=== PATIENT | female | born 1985 | race Two or more races ===

== ENCOUNTER → 2024-09-21 | Outpatient (CLI) | payer BC, SELFPAY ==
--- NOTE | 2024-09-21 | XR_ITS ---
Examination: PA lateral chest 2 views TECHNIQUE: Upright PA lateral chest 2 views Exam date and time: September 21, 2024 0855 hours Comparison 02/15/2021 INDICATIONS: Positive PPD FINDINGS: Normal heart size. Lungs are clear. Intact osseous structures IMPRESSION: No active disease No radiographic findings of tuberculosis
== END | disposition home or self-care (01) ==
LOC: CDIM 08:20
DX: R76.11 Nonspecific reaction to tuberculin skin test without active tuberculosis (principal)
CPT/HCPCS: 71046

== ENCOUNTER 2025-03-08 19:52 | Emergency (ER) | payer BC, SELFPAY ==
[2025-03-08 20:00] VITALS: BP 128/84; PULSE 104; PULSE 88; RESP 17; TEMP 36.9; O2SAT 100; O2SAT 98
--- NOTE | 2025-03-08 20:04 | PC.NURSE ---
patient brought in for face/neck numbness informed dr yang at this time.
--- NOTE | 2025-03-08 20:08 | PC.NURSE ---
per dr raman we will do a stroke up but no alert at this time
--- NOTE | 2025-03-08 20:28 | XR_ITS ---
Examination: AP portable upright chest single view Date and time: March 08, 2025, 2100 hrs. Indications: Stroke alert today Findings: Mild enlargement cardiac contour No lobar pneumonia or pulmonary edema. Mild osteopenia Impression: Negative for aspiration pneumonia
--- NOTE | 2025-03-08 20:28 | EKG_ITS ---
[facility] Test Date: 2025-03-08 Pat Name: INES LOCO Department: Room: - Gender: Female Occupational Analyst: : 1985 Requested By: Lencho Moreno Order Number: [id number] Reading MD: Lencho Moreno Measurements Intervals Palmer Rate: 79 P: 14 NM: 126 QRS: 23 QRSD: 89 T: 16 QT: 374 QTc: 429 Interpretive Statements SINUS RHYTHM Compared to ECG 03/25/2023 15:15:57 No significant changes /store/S0/[id number].pdf
--- NOTE | 2025-03-08 20:32 | XR_ITS ---
Examination: CT brain head without contrast. 2-D sagittal coronal reconstructions Date and time of exam:March 08, 2025, 2046 hrs. Indications: Head numbness today CTDI: vol (mGy):49.5 DLP: (mGycm):981 Technique: Multiple CT axial sections of the brain have been obtained, 5 mm slice thickness. Contrast has not been administered. 2-D sagittal, coronal reconstructions have been obtained Low dose protocols were performed. One or more of the following dose reduction techniques were used; automated exposure control, adjustment of the mA and/or KV according to patient size, use of iterative reconstruction technique. Findings: No significant ventricular enlargement. Intra-axial or extra-axial hemorrhage density is not seen. No mass effect or midline shift Basal cisterns are not remarkable. Fourth ventricle is midline. Cranial vault intact. Impression: Negative for acute hemorrhage, mass effect or midline shift As clinically warranted, if symptoms persist, consider brain MRI follow-up
[2025-03-08 21:06] LABS: Basophils # (Auto) 0.0 Thou/mm3 (0.0-0.2); Basophils % (Auto) 0 % (0-2.5); Eosinophils # (Auto) 0.1 Thou/mm3 (0.0-0.5); Eosinophils % (Auto) 1 % (0-10); Hematocrit 32.8 % (36.0-46.0); Hemoglobin 10.5 g/dL (12.0-16.0); Immature Granulocytes Auto 0.01 Thou/mm3 (0.00-0.00); Lymphocytes # (Auto) 2.4 Thou/mm3 (1.0-4.8); Lymphocytes % (Auto) 28 % (10-50); Mean Corpuscular HGB Conc 32.0 g/dl (31.0-37.0); Mean Corpuscular Hemoglobin 25.1 pg (25.0-35.0); Mean Corpuscular Volume 78 fL (80-100); Monocytes # (Auto) 0.6 Thou/mm3 (0.0-0.8); Monocytes % (Auto) 7 % (0-12); Neutrophils # (Auto) 5.5 Thou/mm3 (1.8-7.7); Neutrophils % (Auto) 64 % (37-80); Nucleated Red Blood Cell # 0.00 Thou/mm3 (0.00-0.00); Nucleated Red Blood Cell % 0 /100 WBC (0); Platelet Count 366 Thou/mm3 (140-440); RDW Standard Deviation 44.4 fL (36.4-46.3); Red Blood Count 4.19 Miln/mm3 (4.00-5.20); White Blood Count 8.6 Thou/mm3 (3.6-11.0)
[2025-03-08 21:21] LABS: HCG Titer if Positive Negative
[2025-03-08 21:25] LABS: INR 1.0 (0.9-1.3); Partial Thromboplastin Time 27.9 Seconds (22.0-36.0); Prothrombin Time 10.7 Seconds (9.0-12.2)
[2025-03-08 21:27] VITALS: BP 144/80; PULSE 101; PULSE 102; PULSE 90; RESP 18; RESP 99; O2SAT 100
[2025-03-08 21:36] LABS: Alanine Aminotransferase 9 U/L (10-49); Albumin, Serum 4.0 gm/dL (3.5-5.0); Albumin/Globulin Ratio 1.4 (1.2-2.2); Alkaline Phosphatase 74 U/L (46-116); Anion Gap 9 (7-16); Aspartate Amino Transferase 15 U/L (0-34); BUN/Creatinine Ratio 18 Ratio (12-20); Bilirubin,Total 0.2 mg/dL (0.3-1.2); Blood Urea Nitrogen 14 mg/dL (9-23); Calcium 9.4 mg/dL (8.3-10.6); Calcium (Corrected) 9.4 mg/dL (8.5-10.1); Carbon Dioxide 22.8 mMol/L (20.0-31.0); Chloride 109 mMol/L (98-107); Creatinine (Component) 0.8 mg/dL (0.6-1.3); Globulin 2.9 gm/dL (2.3-3.5); Glucose 118 mg/dL (74-106); Magnesium 1.8 mg/dL (1.6-2.6); Osmolality,Calculated 282 (275-295); Potassium 3.7 mMol/L (3.4-5.1); Sodium 141 mMol/L (136-145); Total Protein 6.9 gm/dL (5.7-8.2); Troponin I < 0.002 ng/mL (0.0-0.045); eGFR > 60 See Note
[2025-03-08] MEDS: ONDANSETRON INJ 2 MG/ML INJ 2 ML 4 MG IVP (21:40)
[2025-03-08] MEDS: DEXAMETHASONE INJ 10 MG in SODIUM CHLORIDE 0.9% 100 ML 101 MG IV (21:41)
[2025-03-08] MEDS: MIDAZOLAM INJ 1 MG/ML VIAL 2 ML IVP (21:41)
--- NOTE | 2025-03-08 22:17 | PD.EDHA ---
ED Headache RME/HPI General Chief Complaint: Headache Stated Complaint: HEAD NUMBNESS Time Seen by Provider: 03/08/25 20:32 Arrival date/time: 03/08/25 19:52 RME / HPI RME / HPI Narrative: DR. BURROUGHS MAIN ED EVALUATION: Patient presenting with ongoing retro-orbital/occiput headache for 2 months relatively constant now with parasthesias supraorbital region to vortex. No nausea or vomiting reported. Denies visual disturbance or lateralized sensory or motor deficits. Recently treated for autoimmune disease with immuno-modulator therapy. No recent fever, chills, URI or cough. PMH: Urolithiasis, Asthma, Sleep Apnea PSH: Gastric Bypass, Tubal Ligation Social: No alcohol, tobacco, or illicit drug abuse Related Data Home Medications ?Medication ?Instructions ?Recorded ?Confirmed acetaminophen 120 mg-codeine 12 10 ml PO Q6HR PRN Pain 03/05/21 03/05/21 mg/5 mL oral solution omeprazole 40 mg capsule,delayed 40 mg PO QAM 03/05/21 03/05/21 release Previous Rx's ?Medication ?Instructions ?Recorded apixaban 5 mg (74 tabs) tablets in 10 mg (2 x 5 mg (74 tabs)) PO BID 03/05/21 a dose pack ([employer]Jam DVT-PE Treat #74 tabs 30D Start) fluconazole 150 mg tablet 150 mg PO Q3D 2 doses #2 tabs 03/25/23 ibuprofen 800 mg tablet (IBU) 800 mg PO Q8H #20 tabs 03/25/23 pseudoephedrine HCl 60 mg tablet 60 mg PO Q6H PRN nasal congestion 03/25/23 #20 tabs [id number] 1 cap PO Q6H PRN pain #20 caps 03/09/25 50 mg-300 mg-40 mg capsule (Fioricet) prednisone 20 mg tablet 40 mg PO QDAY 3 days #6 tabs 03/09/25 Allergies Allergy/AdvReac Type Severity Reaction Status Date / Time NSAIDS (Non-Steroidal AdvReac Severe Abdominal Verified 03/25/23 14:35 Anti-Inflamma Pain Review of Systems Review of Systems Systems Reviewed: All systems reviewed, normal except as documented Past Medical History Past Medical History RESPIRATORY: Positive Asthma and Sleep Apnea GASTROINTESTINAL: Positive Gastrointestinal Disorders, Gall Bladder Disease, Gastroesophageal Reflux Disease and Obesity GENITOURINARY: Positive Genitourinary Disorders and Kidney Stones REPRODUCTIVE: Positive Previous Pregnancies OTHER HISTORY: Positive Autoimmune Disease and Chicken Pox Family History FAMILY HISTORY: Positive Family Psychiatric Problems, Family Cardiac Disorders and Family Surgery Surgical History SURGICAL: Positive Abdominal Surgery, Gastric Bypass Surgery and Section ED Exam Narrative Physical exam: GEN. APPEARANCE: The patient is alert awake oriented X-3 in mild to moderate distress with light myoclonic jerking of BUE, lying down comfortably, does not look ill/toxic. Patient has good eye contact. Patient is cooperative. VITALS: All vitals were reviewed and the pulse ox is 100% on room air which is normal according to my interpretation. HEENT: Normocephalic, atraumatic. Noted alodynia. Pupils are equal and reactive. Oral mucosa is moist. Patent Nares NECK: Supple, nontender, no thyromegaly, no meningismus, no JVD, no step offs CHEST: Symmetrical, atraumatic, and with equal expansion , Nontender on palpation no deformity and no crepitus. CARDIOVASCULAR: Heart regular rhythm no murmur or gallop rub or extra beats. LUNGS: Clear to auscultation bilaterally with symmetrical chest rise. No laboring tachypnea or wheezing. No intercostal subcostal retraction. No rales and no rhonchi. ABDOMEN: Soft, flat, nontender to palpation, no guarding or rebound tenderness. There are no abnormal masses palpated. Active and normal bowel sounds. EXTREMITIES: Nontender. No edema. No cyanosis. Patient is able to move all 4 extremities well, with full ROM and good CSM. SKIN: Warm and dry, no jaundice or rashes noted. MUSCULOSKELETAL: No lubar or midline bony tenderness. There is no CVA tenderness. No paraspinal muscle spasm or tenderness. NEURO: Patient is MTZ x 4, Cranial nerves II through XII grossly intact. There is no focal neurologic deficits noted. GCS is 15, PNS and DRAFTER [employer]OGRAPH[employer] appear grossly intact. PSYCHIATRIC: Patient is in normal mood and affect, cooperative, no SI or HI or hallucinations. Course Quality Measures none Orders Category Date Time Status Bedside Blood Glucose NOW Care 03/08/25 20:28 Completed Solidworks Mechanical Designer NOW Care 03/08/25 20:28 Completed Continuous Pulse Oximetry NOW Care 03/08/25 20:28 Completed EKG (ED ONLY) *Do not use* NOW Care 03/08/25 20:28 Completed In and Out Catheter NEEDED Care 03/08/25 20:28 Completed Insert IV NOW Care 03/08/25 20:28 Completed NIH Stroke Scale now Care 03/08/25 20:28 Completed NPO NOW Care 03/08/25 20:28 Completed Nurse Swallow Screen x1 Care 03/08/25 20:28 Completed Consult to Neurology / Tele-Neurology Routine Cons 03/08/25 20:[address] head/brain wo con Stat Exams 03/08/25 20:32 Completed EKG (ED Only) Stat Exams 03/08/25 20:28 Draft XR chest 1V portable Stat Exams 03/08/25 20:28 Completed CBC Stat Lab 03/08/25 20:50 Completed Comprehensive Metabolic Panel Stat Lab 03/08/25 20:50 Completed Drug Screen,Urine Stat Lab 03/09/25 00:35 Completed HCG Titer if Positive Stat Lab 03/08/25 20:50 Completed Magnesium Stat Lab 03/08/25 20:50 Completed Partial Thromboplastin Time Stat Lab 03/08/25 20:50 Completed Prothrombin Time with INR Stat Lab 03/08/25 20:50 Completed Troponin I Stat Lab 03/08/25 20:50 Completed Urinalysis, C/S if Indicated Stat Lab 03/09/25 00:35 Completed Dexamethasone Inj [Decadron Inj] 10 mg Med 03/08/25 21:14 Discontinued Sodium Chloride 0.9% [Ns] 100 ml IV X1 Labetalol IV [Trandate IV] Med 03/08/25 20:28 Discontinued 10 mg IVP Q15M PRN Midazolam Inj [Versed Inj] Med 03/08/25 21:14 Discontinued 1 mg IVP X1 ONE Morphine* Inj Med 03/08/25 21:14 Discontinued 4 mg IVP X1 ONE Morphine* Inj Med 03/08/25 23:13 Discontinued 4 mg IVP X1 ONE Ondansetron Inj [Zofran Inj] Med 03/08/25 20:28 Discontinued 4 mg IVP Q4HR PRN Pantoprazole Inj [Protonix Inj] Med 03/09/25 00:18 Discontinued 40 mg IVP X1 ONE Oxygen Delivery NOW RT 03/08/25 20:28 Completed Vital Signs Vital signs: Vital Signs Temperature 98.5 F 03/08/25 20:00 Pulse Rate 104 H 03/08/25 20:00 Respiratory Rate 17 03/08/25 20:00 Blood Pressure 128/84 03/08/25 20:00 Pulse Oximetry (%) 100 03/08/25 20:00 Oxygen Delivery Method Room Air 03/08/25 20:00 Headache MDM Narrative MDM Narrative:: Scribe Attestation: ISelene, am scribing for and in the presence of Dr. Burroughs. Provider Notation: Although this document has been carefully reviewed, there may still be some phonetic and other typographical errors. These errors are purely grammatical due to imperfections in the software program and should not be construed in any way to compromise the substance of the patient's medical care during this visit. Patient presenting with ongoing retro-orbital/occiput headache for 2 months relatively constant now with parasthesias supraorbital region to vortex. No nausea or vomiting reported. Denies visual disturbance or lateralized sensory or motor deficits. Please see PE findings. Laboratory markers, including CBC and serum chemistries, were unremarkable. Patient underwent CT of the brain which was unremarkable. Administered low-dose narcotic analgesics, IV steroids, and muscle relaxants with marked improvement. Patient remained neurologically intact throughout ED course. Will treat for migraine variant with combination fiorinal and Promethazine. Patient data External records reviewed:: [facility] previous records (Reviewed prior ED records from 03/25/23. Patient was seen for Headache.) Clinical information provided by:: patient Social determinants that could affect healthcare access:: none Patient has the following chronic illnesses:: Asthma, Sleep Apnea, Gall Bladder Disease, Gastroesophageal Reflux Disease, Obesity, Kidney Stones How is presenting disease/condition affected by chronic disease/condition?: exacerbated by Evaluation data The following diagnostics were reviewed and interpreted by me:: lab results and radiology exam(s) Lab and/or radiology exams considered but not ordered:: None Interpretation Summary: RADIOLOGY Chest X-Ray: Findings: Mild enlargement cardiac contour No lobar pneumonia or pulmonary edema. Mild osteopenia Impression: Negative for aspiration pneumonia Head/Brain CT: Findings: No significant ventricular enlargement. Intra-axial or extra-axial hemorrhage density is not seen. No mass effect or midline shift Basal cisterns are not remarkable. Fourth ventricle is midline. Cranial vault intact. Impression: Negative for acute hemorrhage, mass effect or midline shift As clinically warranted, if symptoms persist, consider brain MRI follow-up Medications / Prescriptions Medications or Prescriptions considered but not ordered:: None Medication administrations:: Medication Administration History Discontinued Medications Dexamethasone Sodium Phosphate (10 mg/ Sodium Chloride) 101 mls @ 101 mls/hr IV X1 ONE Stop: 03/08/25 21:15 Last Infusion: 03/08/25 22:41 Dose: Infused Documented By: Admin: 03/08/25 21:41 Dose: 101 mls/hr Documented By: EF Labetalol HCl (Labetalol Inj 5 Mg/Ml Vial 20 Ml) 10 mg IVP Q15M PRN PRN Reason: HYPER Midazolam HCl (Midazolam Inj 1 Mg/Ml Vial 2 Ml) 1 mg IVP X1 ONE Stop: 03/08/25 21:15 Last Admin: 03/08/25 21:41 Dose: 1 mg Documented By: EF Morphine Sulfate (Morphine Sulf Inj 4 Mg/Ml Vial) 4 mg IVP X1 ONE Stop: 03/08/25 21:15 Last Admin: 03/08/25 23:38 Dose: 4 mg Documented By: EF Morphine Sulfate (Morphine Sulf Inj 4 Mg/Ml Vial) 4 mg IVP X1 ONE Stop: 03/08/25 23:14 Last Admin: 03/09/25 02:08 Dose: Not Given Documented By: CVL Non-Admin Reason: Change of Condition Ondansetron HCl (Ondansetron Inj 2 Mg/Ml Inj 2 Ml) 4 mg IVP Q4HR PRN PRN Reason: NAUSEA OR VOMITING Stop: 04/07/25 20:27 Last Admin: 03/08/25 21:40 Dose: 4 mg Documented By: EF Pantoprazole Sodium (Pantoprazole Inj 40 Mg Vial) 40 mg IVP X1 ONE Stop: 03/09/25 00:19 Last Admin: 03/09/25 00:23 Dose: 40 mg Documented By: EF See above if any Consultations Consultation(s) initiated? (list below): No Diagnosis Differential diagnosis headache: migraine, tension headache and headache Most likely diagnosis given after review of the tests above:: Variant migraine headache Admission Indicated Admission indicated?: not indicated Explain why admission is indicated or not indicated:: Patient does not meet admission criteria Admission Request Was there a request for admission?: No Disposition Plan Disposition Plan: Discharge Discharge Attestation Discharge Attestation: The patient and all family members were given an opportunity to ask questions and understood the discharge instructions. Discharge instructions specifically effects, indications for sooner follow up or return to the emergency department, and the expected course of current diagnosis. Patient condition: Stable Discharge Plan Plan Patient Disposition: HOME (Self Care) Prescriptions/Referrals Prescriptions/Med Rec: New [id number] [Fioricet] 50-300-40 mg capsule 1 cap PO Q6H PRN (Reason: pain) Qty: 20 0RF prednisone 20 mg tablet 40 mg PO QDAY 3 Days Qty: 6 0RF Taper: Prednisone Taper 40 mg DAILY for 3 Days and 0 Hour No Action acetaminophen-codeine 120-12 mg/5 mL solution 10 ml PO Q6HR PRN (Reason: Pain) Patient Comments: INSTILL 10 ML BY MOUTH EVERY 4 TO 6 HOURS omeprazole 40 mg capsule,delayed release(DR/EC) 40 mg PO QAM Patient Comments: TAKE ONE CAPSULE BY MOUTH EVERY DAY FOR GASTRITIS AND HEARTBURN Eliquis DVT-PE Treat 30D Start 5 mg (74 tabs) tablets,dose pack 10 mg PO BID Qty: 74 0RF Rx Instructions: 10 mg twice daily for 7 days, then 5 mg twice daily fluconazole 150 mg tablet 150 mg PO Q3D 0 Days Qty: 2 0RF ibuprofen [IBU] 800 mg tablet 800 mg PO Q8H Qty: 20 0RF pseudoephedrine HCl 60 mg tablet 60 mg PO Q6H PRN (Reason: nasal congestion) Qty: 20 0RF Referrals: Johnathan Russ MD [Primary Care Provider, Family Practice] - In 1 week Problem List Clinical Impression: Headache, variant migraine Patient/Caregiver Discharge Instructions Discharge Activity: activity as tolerated Other Activity Instructions:: Hold antifungal medication. Education Materials: Headache Migraine Meds Lifestyle Additional Instructions: Darkroom/cool compresses/medication as directed/follow-up with neurologist today as scheduled. Return if worsening Print Language: Kazakh Stand Alone Forms: [employer] Award Info., Patient Portal Info Letter
[2025-03-08] MEDS: MORPHINE SULF INJ 4 MG/ML VIAL IVP (23:38)
[2025-03-09 00:41] LABS: Collection Type, Urine Clean Catch
[2025-03-09 00:46] LABS: Bacteria,Urine Rare; Bilirubin,Urine Negative (Negative); Blood,Urine Negative (Negative); Clarity,Urine Clear (Clear/Hazy); Color,Urine Lt-Yellow (Lt Yel-Yel); Culture Indicated,Urine Not Indicated; Glucose, Urine Negative (Negative); Ketones,Urine Negative (Negative); Leukocyte Esterase,Urine Negative (Negative); Nitrite,Urine Negative (Negative); PH,Urine 7.0 (5.0-7.0); Protein,Urine Negative (Neg - Trace); RBC,Urine 2 /hpf (0-3); Specific Gravity,Urine 1.023 (1.001-1.035); Squamous Epithelial Cell,Urine < 1 /hpf (0-5); Urobilinogen,Urine Negative mg/dL (0.0-1.0); WBC,Urine 1 /hpf (0-5)
[2025-03-09 00:54] LABS: Amphetamine/Methamp Scrn,U Negative (Negative); Barbiturate Screen,Urine Negative (Negative); Benzodiazepines Screen,Urine Positive (Negative); Benzoylecgonine Screen, Ur Negative (Negative); Fentanyl Screen,Urine Negative (Negative); Opiate Screen,Urine Positive (Negative); THC Screen,Urine Negative (Negative)
[2025-03-09 01:52] VITALS: BP 144/80; PULSE 95; RESP 16; TEMP 37.2; O2SAT 95
[2025-03-09 02:15] VITALS: BP 119/83; PULSE 91; RESP 16; O2SAT 98
== END 2025-03-09 02:16 | disposition home or self-care (01) ==
PROVIDERS: Emergency Provider Emergency Medicine; PCP Family Medicine
DX: G43.909 Migraine, unspecified, not intractable, without status migrainosus (principal)
CPT/HCPCS: 36415; 70450; 71045; 80053; 80307; 81001; 83735; 84484; 84703; 85025; 85610; 85730; 93005; 96365; 96375; 99285; J1100; J2250; J2270; J2405; J2470; J7050